=== PATIENT | male | born 1970 ===

== ENCOUNTER 2020-11-06 22:41 | Inpatient (IN) | payer MEDICARE, MEDICAID ==
[~2020-11-06] VITALS: Ht 175.3 cm; Wt 93.9 kg
[2020-11-06 23:34] LABS: BASOPHILS % (AUTO) 0.1 % (0.0-2.0); EOSINOPHILS % (AUTO) 0.1 % (1.0-6.0); HEMATOCRIT 42.9 % (41-53); HEMOGLOBIN 14.1 g/dL (13.5-17.5); LYMPHOCYTES # (AUTO) 1.9 K/uL (1.0-4.8); LYMPHOCYTES % (AUTO) 20.5 % (22.0-44.0); MEAN CORPUSCULAR HEMOGLOBIN 29.9 pg (26.0-34.0); MEAN CORPUSCULAR HGB CONC 32.8 G/dL (31.0-37.0); MEAN CORPUSCULAR VOLUME 91 fL (80-100); MONOCYTES # (AUTO) 0.7 K/uL (0.1-1.0); MONOCYTES % (AUTO) 7.4 % (2.0-9.0); NEUTROPHILS # (AUTO) 6.6 K/uL (1.8-7.7); NEUTROPHILS % (AUTO) 71.9 % (40.0-70.0); PLATELET COUNT (AUTO) 185 K/uL (150-450); RED CELL DISTRIBUTION WIDTH 14.2 % (11.5-14.5)
[2020-11-06 23:43] LABS: ANION GAP 9 mmol/L (8-16); CALCIUM, TOTAL 9.4 mg/dL (8.8-10.5); CARBON DIOXIDE 26 mmol/L (22-29); CHLORIDE 104 mmol/L (98-107); CREATININE 1.82 mg/dL (0.60-1.30); GLOMERULAR FILTR. RATE CALC 40 mL/min (>60); GLUCOSE,RANDOM 150 mg/dL (70-110); POTASSIUM 4.4 mmol/L (3.5-5.1); SODIUM SERUM 139 mmol/L (136-145); UREA NITROGEN, BLOOD 27 mg/dL (7-18)
[2020-11-06] MEDS ORDERED: HALOPERIDOL 5 MG TABLET PO ONE (23:45)
[2020-11-06] MEDS ORDERED: DiphenhydrAMINE HCL 25 MG CAPSULE PO ONE (23:45)
[2020-11-06] MEDS ORDERED: IBUPROFEN 800 MG TABLET PO ONE (23:45)
[2020-11-06 23:49] LABS: ALANINE AMINOTRANSFERASE 54 U/L (12-78); ALBUMIN 3.7 g/dL (3.4-5.0); ALKALINE PHOSPHATASE 128 U/L (46-116); ASPARTATE AMINOTRANSFERASE 24 U/L (15-37); BILIRUBIN,TOTAL 0.2 mg/dL (0.1-1.0); LIPASE 344 U/L (73-393); TOTAL PROTEIN, SERUM 7.7 g/dL (6.4-8.2)
[2020-11-07] MEDS ORDERED: SODIUM CHLORIDE 0.9% 1,000 ML ONE (00:40)
[2020-11-07] MEDS ORDERED: SODIUM CHLORIDE 0.9% 1,000 ML IV ONE ×2 (00:45→02:45)
[2020-11-07] MEDS ORDERED: ZOLPIDEM TARTRATE 10 MG TABLET PO PRN (02:15)
[2020-11-07 02:35] LABS: APPEARANCE,URINE CLOUDY (CLEAR); BILIRUBIN,URINE NEGATIVE (NEGATIVE); GLUCOSE, URINE (UA) NEGATIVE (NEGATIVE); KETONES,URINE NEGATIVE (NEGATIVE); LEUKOCYTE ESTERASE ,URINE SMALL (NEGATIVE); NITRATE,URINE POSITIVE (NEGATIVE); OCCULT BLOOD,URINE TRACE (NEGATIVE); PROTEIN,URINE NEGATIVE (NEGATIVE); UROBILINOGEN,URINE 0.2 mg/dL (<=1.0)
[2020-11-07 02:43] LABS: COVID AG,FIA SOURCE NASOPHARYNGEAL
[2020-11-07 02:45] LABS: BACTERIA,URINE Moderate /HPF (None Seen); RBC,URINE 0-2 /HPF (0-2)
[2020-11-07 02:46] LABS: SQUAMOUS EPITHELIAL CELL,UR None Seen /LPF (None Seen)
[2020-11-07 03:20] VITALS: BP 149/82
[2020-11-07] MEDS ORDERED: INFLUENZA VIRUS VACCINE QVS 2020-21 (6MO+)/PF 60 MCG/0.5 ML SYRINGE IM ONE (06:00)
[2020-11-07 07:09] LABS: AMPHET/METH SCREEN,URINE NEGATIVE (NEGATIVE); BARBITURATE SCREEN, URINE NEGATIVE (NEGATIVE); BENZODIAZEPINES SCREEN,URINE NEGATIVE (NEGATIVE); CANNABINOID SCREEN,URINE NEGATIVE (NEGATIVE); COCAINE SCREEN,URINE NEGATIVE (NEGATIVE); METHADONE SCREEN, URINE NEGATIVE (NEGATIVE); OPIATE SCREEN,URINE NEGATIVE (NEGATIVE)
[2020-11-07 07:13] LABS: PHENCYCLIDINE SCREEN,URINE NEGATIVE (NEGATIVE)
[2020-11-07 08:38] VITALS: BP 139/98
[2020-11-07] MEDS ORDERED: BACITRACIN 28 GM OINTMENT TP PRN (08:45)
[2020-11-07] MEDS ORDERED: CloNIDine HCL 0.1 MG TABLET PO PRN (08:45)
[2020-11-07] MEDS ORDERED: MAGNESIUM HYDROXIDE SUSPENSION 30 ML UDCUP PO PRN (08:45)
[2020-11-07] MEDS ORDERED: ALBUTEROL SULFATE HFA 90 MCG/PUFF 8 GM INHALER IH PRN (08:45)
[2020-11-07] MEDS ORDERED: BENZOCAINE/MENTHOL LOZENGE PO PRN (08:45)
[2020-11-07] MEDS ORDERED: OMEPRAZOLE 20 MG CAPSULE PO PRN (08:45)
[2020-11-07] MEDS ORDERED: LOPERAMIDE HCL 2 MG CAPSULE PO PRN (08:45)
[2020-11-07] MEDS ORDERED: PETROLATUM,WHITE 28 GM JELLY TP PRN (08:45)
[2020-11-07] MEDS ORDERED: DOCUSATE SODIUM 100 MG CAPSULE PO PRN (08:45)
[2020-11-07] MEDS ORDERED: IBUPROFEN 600 MG TABLET PO PRN (08:45)
[2020-11-07] MEDS ORDERED: MAG HYDROX/AL HYDROX/SIMETH ES 30 ML SUSPENSION UDCUP PO PRN (08:45)
[2020-11-07] MEDS ORDERED: ONDANSETRON HCL 4 MG TABLET PO PRN (08:45)
[2020-11-07] MEDS: CIPROFLOXACIN HCL 250 MG TABLET PO SCH ×2 (09:19→16:21)
[2020-11-07] MEDS: AmLODIPine BESYLATE 5 MG TABLET PO SCH (09:19)
[2020-11-07 16:28] VITALS: BP 96/55
[2020-11-07] MEDS: LORazepam 2 MG TABLET PO PRN (20:13)
[2020-11-08 08:54] LABS: CALCIUM, TOTAL 9.2 mg/dL (8.8-10.5); CHOL/HDL RATIO 2.8 (4.2-7.3); CREATININE 1.8 mg/dL (0.60-1.30); POTASSIUM 4.8 mmol/L (3.5-5.1)
[2020-11-08] MEDS: AmLODIPine BESYLATE 5 MG TABLET PO SCH (09:28)
[2020-11-08] MEDS: CIPROFLOXACIN HCL 500 MG TABLET PO SCH ×2 (09:28→16:44)
[2020-11-08 10:05] VITALS: BP 141/83
[2020-11-08 16:35] VITALS: BP 132/87
[2020-11-09] MEDS: AmLODIPine BESYLATE 5 MG TABLET PO SCH (08:19)
[2020-11-09] MEDS: CIPROFLOXACIN HCL 500 MG TABLET PO SCH ×2 (08:19→16:09)
[2020-11-09] MEDS: LORazepam 2 MG TABLET PO PRN (09:28)
[2020-11-09 09:47] VITALS: BP 121/89
[2020-11-09] MEDS: RisperiDONE 2 MG TABLET PO SCH ×2 (10:45→16:09)
[2020-11-09 17:15] VITALS: BP 127/72
[2020-11-10 04:03] VITALS: BP 124/74
[2020-11-10] MEDS: CIPROFLOXACIN HCL 500 MG TABLET PO SCH ×2 (08:44→16:33)
[2020-11-10] MEDS: RisperiDONE 2 MG TABLET PO SCH ×2 (08:44→16:33)
[2020-11-10] MEDS: AmLODIPine BESYLATE 5 MG TABLET PO SCH (08:44)
[2020-11-10 09:16] VITALS: BP 133/92
[2020-11-10] MEDS: LORazepam 2 MG TABLET PO PRN (09:36)
[2020-11-10] MEDS: HALOPERIDOL 5 MG TABLET PO PRN (09:36)
[2020-11-10 16:03] VITALS: BP 125/89
[2020-11-11] MEDS: CIPROFLOXACIN HCL 500 MG TABLET PO SCH ×2 (08:03→16:14)
[2020-11-11] MEDS: AmLODIPine BESYLATE 5 MG TABLET PO SCH (08:04)
[2020-11-11] MEDS: RisperiDONE 2 MG TABLET PO SCH ×2 (08:04→16:14)
[2020-11-11 08:48] VITALS: BP 141/78
[2020-11-11] MEDS: HALOPERIDOL 5 MG TABLET PO PRN (16:54)
[2020-11-11 18:03] VITALS: BP 119/68
[2020-11-12 06:54] LABS: BASOPHILS % (AUTO) 0.1 % (0.0-2.0); EOSINOPHILS % (AUTO) 0.1 % (1.0-6.0); HEMATOCRIT 44.3 % (41-53); HEMOGLOBIN 14.6 g/dL (13.5-17.5); LYMPHOCYTES # (AUTO) 2.3 K/uL (1.0-4.8); LYMPHOCYTES % (AUTO) 37.4 % (22.0-44.0); MEAN CORPUSCULAR HEMOGLOBIN 30.2 pg (26.0-34.0); MEAN CORPUSCULAR HGB CONC 32.9 G/dL (31.0-37.0); MEAN CORPUSCULAR VOLUME 92 fL (80-100); MONOCYTES # (AUTO) 0.5 K/uL (0.1-1.0); MONOCYTES % (AUTO) 8.7 % (2.0-9.0); NEUTROPHILS # (AUTO) 3.4 K/uL (1.8-7.7); NEUTROPHILS % (AUTO) 53.7 % (40.0-70.0); PLATELET COUNT (AUTO) 181 K/uL (150-450); RED BLOOD CELL COUNT(AUTO) 4.83 MIL/uL (4.50-5.90); RED CELL DISTRIBUTION WIDTH 14.5 % (11.5-14.5)
[2020-11-12 07:19] LABS: ALBUMIN 3.7 g/dL (3.4-5.0); BILIRUBIN,TOTAL 0.2 mg/dL (0.1-1.0); CALCIUM, TOTAL 9.6 mg/dL (8.8-10.5); CHOL/HDL RATIO 3.2 (4.2-7.3); CREATININE 1.7 mg/dL (0.60-1.30); MAGNESIUM 2.5 mg/dL (1.80-2.40); PHOSPHORUS 4.1 mg/dL (2.5-4.9); POTASSIUM 5.5 mmol/L (3.5-5.1); THYROID STIMULATING HORMONE 1.99 uIU/mL (0.36-3.74); TOTAL PROTEIN, SERUM 8.1 g/dL (6.4-8.2)
[2020-11-12] MEDS: RisperiDONE 2 MG TABLET PO SCH ×2 (08:34→16:27)
[2020-11-12] MEDS: AmLODIPine BESYLATE 5 MG TABLET PO SCH (08:34)
[2020-11-12 15:02] LABS: COVID AG,FIA SOURCE NASOPHARYNGEAL
[2020-11-12 16:00] VITALS: BP 125/82
[2020-11-13] MEDS: AmLODIPine BESYLATE 5 MG TABLET PO SCH (08:24)
[2020-11-13] MEDS: RisperiDONE 2 MG TABLET PO SCH ×2 (08:24→16:14)
[2020-11-13 08:27] VITALS: BP 147/84
[2020-11-13 16:00] VITALS: BP 134/79
[2020-11-13] MEDS: HALOPERIDOL 5 MG TABLET PO PRN (16:14)
[2020-11-14 05:57] LABS: BASOPHILS % (AUTO) 0.3 % (0.0-2.0); EOSINOPHILS % (AUTO) 0.1 % (1.0-6.0); HEMATOCRIT 42.8 % (41-53); HEMOGLOBIN 13.7 g/dL (13.5-17.5); LYMPHOCYTES # (AUTO) 1.8 K/uL (1.0-4.8); LYMPHOCYTES % (AUTO) 34.5 % (22.0-44.0); MEAN CORPUSCULAR VOLUME 94 fL (80-100); MONOCYTES # (AUTO) 0.5 K/uL (0.1-1.0); MONOCYTES % (AUTO) 8.7 % (2.0-9.0); NEUTROPHILS % (AUTO) 56.4 % (40.0-70.0); PLATELET COUNT (AUTO) 173 K/uL (150-450); RED BLOOD CELL COUNT(AUTO) 4.56 MIL/uL (4.50-5.90)
[2020-11-14 06:48] LABS: ALBUMIN 3.4 g/dL (3.4-5.0); BILIRUBIN,TOTAL 0.3 mg/dL (0.1-1.0); CREATININE 1.76 mg/dL (0.60-1.30); MAGNESIUM 2.3 mg/dL (1.80-2.40); PHOSPHORUS 3.4 mg/dL (2.5-4.9); POTASSIUM 5.3 mmol/L (3.5-5.1); TOTAL PROTEIN, SERUM 7.4 g/dL (6.4-8.2)
[2020-11-14 08:00] VITALS: BP 127/81
[2020-11-14] MEDS: AmLODIPine BESYLATE 5 MG TABLET PO SCH (09:02)
[2020-11-14] MEDS: RisperiDONE 2 MG TABLET PO SCH ×2 (09:02→16:05)
[2020-11-14 16:07] VITALS: BP 130/81
[2020-11-15 01:17] VITALS: BP 118/73
[2020-11-15] MEDS: HALOPERIDOL 5 MG TABLET PO PRN (03:57)
[2020-11-15] MEDS: LORazepam 2 MG TABLET PO PRN (03:58)
[2020-11-15 04:00] VITALS: BP 143/87
[2020-11-15] MEDS: RisperiDONE 2 MG TABLET PO SCH ×2 (08:21→16:25)
[2020-11-15] MEDS: AmLODIPine BESYLATE 5 MG TABLET PO SCH (08:22)
[2020-11-15 08:58] VITALS: BP 161/100
[2020-11-15 16:22] VITALS: BP 144/91
[2020-11-16 03:16] VITALS: BP 131/81
[2020-11-16 06:09] LABS: BASOPHILS % (AUTO) 0.8 % (0.0-2.0); EOSINOPHILS % (AUTO) 0.2 % (1.0-6.0); HEMATOCRIT 45.8 % (41-53); HEMOGLOBIN 14.4 g/dL (13.5-17.5); LYMPHOCYTES # (AUTO) 2.8 K/uL (1.0-4.8); LYMPHOCYTES % (AUTO) 42.2 % (22.0-44.0); MEAN CORPUSCULAR HGB CONC 31.5 G/dL (31.0-37.0); MEAN CORPUSCULAR VOLUME 95 fL (80-100); MONOCYTES # (AUTO) 0.6 K/uL (0.1-1.0); MONOCYTES % (AUTO) 8.4 % (2.0-9.0); NEUTROPHILS # (AUTO) 3.2 K/uL (1.8-7.7); NEUTROPHILS % (AUTO) 48.4 % (40.0-70.0); PLATELET COUNT (AUTO) 197 K/uL (150-450); RED BLOOD CELL COUNT(AUTO) 4.81 MIL/uL (4.50-5.90); RED CELL DISTRIBUTION WIDTH 15.1 % (11.5-14.5)
[2020-11-16 07:07] LABS: ALBUMIN 3.9 g/dL (3.4-5.0); BILIRUBIN,TOTAL 0.3 mg/dL (0.1-1.0); CALCIUM, TOTAL 9.1 mg/dL (8.8-10.5); CREATININE 1.56 mg/dL (0.60-1.30); MAGNESIUM 2.5 mg/dL (1.80-2.40); PHOSPHORUS 4.5 mg/dL (2.5-4.9)
[2020-11-16] MEDS: RisperiDONE 2 MG TABLET PO SCH ×2 (08:23→16:20)
[2020-11-16] MEDS: AmLODIPine BESYLATE 5 MG TABLET PO SCH (08:23)
[2020-11-16 08:32] VITALS: BP 124/80
[2020-11-16 16:21] VITALS: BP 121/74
[2020-11-17] MEDS: RisperiDONE 2 MG TABLET PO SCH ×2 (08:34→16:00)
[2020-11-17] MEDS: AmLODIPine BESYLATE 5 MG TABLET PO SCH (08:34)
[2020-11-17 08:46] VITALS: BP 133/99
[2020-11-17 16:00] VITALS: BP 127/74
[2020-11-18 03:19] VITALS: BP 132/80
[2020-11-18 08:31] VITALS: BP 153/100
[2020-11-18] MEDS: RisperiDONE 2 MG TABLET PO SCH ×2 (08:51→16:19)
[2020-11-18] MEDS: AmLODIPine BESYLATE 5 MG TABLET PO SCH (08:51)
[2020-11-18 13:32] VITALS: BP 141/90
[2020-11-18 17:04] VITALS: BP 123/71
[2020-11-19] MEDS: RisperiDONE 2 MG TABLET PO SCH ×2 (08:05→16:02)
[2020-11-19] MEDS: HALOPERIDOL 5 MG TABLET PO PRN (08:06)
[2020-11-19] MEDS: AmLODIPine BESYLATE 5 MG TABLET PO SCH (08:06)
[2020-11-19 09:04] VITALS: BP 140/79
[2020-11-19 15:12] LABS: COVID AG,FIA SOURCE NASOPHARYNGEAL
[2020-11-19 16:00] VITALS: BP 117/75
[2020-11-20 06:55] LABS: BASOPHILS % (AUTO) 0.1 % (0.0-2.0); EOSINOPHILS % (AUTO) 0.1 % (1.0-6.0); HEMATOCRIT 41.5 % (41-53); HEMOGLOBIN 13.7 g/dL (13.5-17.5); LYMPHOCYTES # (AUTO) 1.7 K/uL (1.0-4.8); LYMPHOCYTES % (AUTO) 26.7 % (22.0-44.0); MEAN CORPUSCULAR HEMOGLOBIN 30.2 pg (26.0-34.0); MEAN CORPUSCULAR HGB CONC 33.1 G/dL (31.0-37.0); MEAN CORPUSCULAR VOLUME 91 fL (80-100); MONOCYTES # (AUTO) 0.5 K/uL (0.1-1.0); MONOCYTES % (AUTO) 8.5 % (2.0-9.0); NEUTROPHILS % (AUTO) 64.6 % (40.0-70.0); PLATELET COUNT (AUTO) 178 K/uL (150-450); RED BLOOD CELL COUNT(AUTO) 4.54 MIL/uL (4.50-5.90); RED CELL DISTRIBUTION WIDTH 14.5 % (11.5-14.5)
[2020-11-20 06:56] LABS: HEMOGLOBIN A1C 6.7 % (3.8-5.6)
[2020-11-20 07:19] LABS: ALBUMIN 3.4 g/dL (3.4-5.0); BILIRUBIN,TOTAL 0.3 mg/dL (0.1-1.0); CALCIUM, TOTAL 8.9 mg/dL (8.8-10.5); CHOL/HDL RATIO 3.2 (4.2-7.3); CREATININE 1.88 mg/dL (0.60-1.30); MAGNESIUM 2.3 mg/dL (1.80-2.40); PHOSPHORUS 4.4 mg/dL (2.5-4.9); POTASSIUM 5.2 mmol/L (3.5-5.1); THYROID STIMULATING HORMONE 2.05 uIU/mL (0.36-3.74); TOTAL PROTEIN, SERUM 7.6 g/dL (6.4-8.2)
[2020-11-20] MEDS: RisperiDONE 2 MG TABLET PO SCH ×2 (08:19→18:45)
[2020-11-20] MEDS: AmLODIPine BESYLATE 5 MG TABLET PO SCH (08:19)
[2020-11-20 09:00] VITALS: BP 128/88
[2020-11-20 16:55] VITALS: BP 136/89
[2020-11-21] MEDS: AmLODIPine BESYLATE 5 MG TABLET PO SCH (08:20)
[2020-11-21] MEDS: RisperiDONE 2 MG TABLET PO SCH ×2 (08:20→16:02)
[2020-11-21 09:00] VITALS: BP 133/88
[2020-11-21] MEDS ORDERED: SODIUM POLYSTYRENE SULFONATE 15 GM/60 ML SUSPENSION BOTTLE PO ONE (13:00)
[2020-11-21 18:12] VITALS: BP 135/85
[2020-11-22 01:23] VITALS: BP 142/84
[2020-11-22 06:48] LABS: BASOPHILS % (AUTO) 0.2 % (0.0-2.0); EOSINOPHILS % (AUTO) 0.1 % (1.0-6.0); HEMATOCRIT 43.9 % (41-53); HEMOGLOBIN 14.8 g/dL (13.5-17.5); LYMPHOCYTES % (AUTO) 33.5 % (22.0-44.0); MEAN CORPUSCULAR HEMOGLOBIN 30.8 pg (26.0-34.0); MEAN CORPUSCULAR HGB CONC 33.7 G/dL (31.0-37.0); MEAN CORPUSCULAR VOLUME 91 fL (80-100); MONOCYTES # (AUTO) 0.5 K/uL (0.1-1.0); MONOCYTES % (AUTO) 8.8 % (2.0-9.0); NEUTROPHILS # (AUTO) 3.5 K/uL (1.8-7.7); NEUTROPHILS % (AUTO) 57.4 % (40.0-70.0); PLATELET COUNT (AUTO) 181 K/uL (150-450); RED BLOOD CELL COUNT(AUTO) 4.81 MIL/uL (4.50-5.90); RED CELL DISTRIBUTION WIDTH 14.7 % (11.5-14.5)
[2020-11-22 07:17] LABS: ALBUMIN 3.7 g/dL (3.4-5.0); BILIRUBIN,TOTAL 0.5 mg/dL (0.1-1.0); CALCIUM, TOTAL 9.4 mg/dL (8.8-10.5); CREATININE 1.77 mg/dL (0.60-1.30); MAGNESIUM 2.4 mg/dL (1.80-2.40); PHOSPHORUS 3.3 mg/dL (2.5-4.9); POTASSIUM 4.6 mmol/L (3.5-5.1); TOTAL PROTEIN, SERUM 8.5 g/dL (6.4-8.2)
[2020-11-22 08:00] VITALS: BP 126/86
[2020-11-22] MEDS: RisperiDONE 2 MG TABLET PO SCH ×2 (09:34→16:40)
[2020-11-22] MEDS: HALOPERIDOL 5 MG TABLET PO PRN (09:34)
[2020-11-22] MEDS: AmLODIPine BESYLATE 5 MG TABLET PO SCH (09:34)
[2020-11-22 16:00] VITALS: BP 118/77
[2020-11-22 22:15] VITALS: BP 134/82
[2020-11-23 09:00] VITALS: BP 130/84
[2020-11-23] MEDS: AmLODIPine BESYLATE 5 MG TABLET PO SCH (09:48)
[2020-11-23] MEDS: HALOPERIDOL 5 MG TABLET PO PRN (09:48)
[2020-11-23] MEDS: RisperiDONE 2 MG TABLET PO SCH ×2 (09:48→16:20)
[2020-11-23 16:21] VITALS: BP 124/71
[2020-11-24 08:11] VITALS: BP 135/74
[2020-11-24] MEDS: HALOPERIDOL 5 MG TABLET PO PRN ×2 (08:51→16:12)
[2020-11-24] MEDS: RisperiDONE 3 MG TABLET PO SCH ×2 (08:51→16:12)
[2020-11-24] MEDS: AmLODIPine BESYLATE 5 MG TABLET PO SCH (08:51)
[2020-11-24 16:21] VITALS: BP 135/84
[2020-11-25 05:31] VITALS: BP 129/80
[2020-11-25] MEDS: HALOPERIDOL 5 MG TABLET PO PRN (06:50)
[2020-11-25 08:01] VITALS: BP 127/83
[2020-11-25] MEDS: RisperiDONE 3 MG TABLET PO SCH ×2 (08:50→16:48)
[2020-11-25] MEDS: AmLODIPine BESYLATE 5 MG TABLET PO SCH (08:52)
[2020-11-25 16:46] VITALS: BP 139/99
[2020-11-26 06:29] VITALS: BP 134/80
[2020-11-26] MEDS: RisperiDONE 3 MG TABLET PO SCH ×2 (08:24→16:01)
[2020-11-26] MEDS: AmLODIPine BESYLATE 5 MG TABLET PO SCH (08:25)
[2020-11-26 09:36] VITALS: BP 146/85
[2020-11-26 11:19] LABS: HEMOGLOBIN 14.5 g/dL (13.5-17.5); MEAN CORPUSCULAR HEMOGLOBIN 30.1 pg (26.0-34.0); MEAN CORPUSCULAR HGB CONC 32.8 G/dL (31.0-37.0); MEAN CORPUSCULAR VOLUME 92 fL (80-100); PLATELET COUNT (AUTO) 188 K/uL (150-450); RED CELL DISTRIBUTION WIDTH 14.9 % (11.5-14.5)
[2020-11-26 11:51] LABS: CALCIUM, TOTAL 8.4 mg/dL (8.8-10.5); CREATININE 1.88 mg/dL (0.60-1.30); MAGNESIUM 2.3 mg/dL (1.80-2.40); PHOSPHORUS 4.5 mg/dL (2.5-4.9); POTASSIUM 4.8 mmol/L (3.5-5.1)
[2020-11-26 12:42] LABS: BAND NEUTROPHILS % (MANUAL) 2 % (0-5); LYMPHOCYTES % (MANUAL) 28 % (22-44); MONOCYTES % (MANUAL) 6 % (2-9); SEGMENTED NEUTROPHILS % 64 % (40-70)
[2020-11-26 16:00] VITALS: BP 101/61
[2020-11-26 16:37] LABS: COVID AG,FIA SOURCE NASOPHARYNGEAL
[2020-11-27 06:26] VITALS: BP 118/78
[2020-11-27 07:26] LABS: HEMOGLOBIN A1C 6.6 % (3.8-5.6)
[2020-11-27 08:01] LABS: CHOL/HDL RATIO 3.3 (4.2-7.3); THYROID STIMULATING HORMONE 2.16 uIU/mL (0.36-3.74)
[2020-11-27 08:34] VITALS: BP 139/99
[2020-11-27] MEDS: RisperiDONE 3 MG TABLET PO SCH ×2 (09:15→16:12)
[2020-11-27] MEDS: AmLODIPine BESYLATE 5 MG TABLET PO SCH (09:16)
[2020-11-27] MEDS: HALOPERIDOL 5 MG TABLET PO PRN ×2 (12:18→17:04)
[2020-11-27 16:01] VITALS: BP 132/89
[2020-11-28 08:00] VITALS: BP 128/86
[2020-11-28] MEDS: RisperiDONE 3 MG TABLET PO SCH ×2 (09:11→18:43)
[2020-11-28] MEDS: AmLODIPine BESYLATE 5 MG TABLET PO SCH (09:11)
[2020-11-28 16:51] VITALS: BP 125/71
[2020-11-28] MEDS: HALOPERIDOL 5 MG TABLET PO PRN (18:43)
[2020-11-29 01:34] VITALS: BP 116/72
[2020-11-29] MEDS: RisperiDONE 3 MG TABLET PO SCH ×2 (08:20→16:12)
[2020-11-29] MEDS: AmLODIPine BESYLATE 5 MG TABLET PO SCH (08:21)
[2020-11-29] MEDS: HALOPERIDOL 5 MG TABLET PO PRN (08:21)
[2020-11-29] MEDS: NICOTINE 21 MG/24 HOUR PATCH TD SCH (10:16)
[2020-11-29 16:00] VITALS: BP 132/70
[2020-11-29 21:55] VITALS: BP 128/72
[2020-11-30] MEDS: RisperiDONE 3 MG TABLET PO SCH ×2 (08:20→16:11)
[2020-11-30] MEDS: NICOTINE 21 MG/24 HOUR PATCH TD SCH (08:20)
[2020-11-30] MEDS: AmLODIPine BESYLATE 5 MG TABLET PO SCH (08:20)
[2020-11-30 08:50] VITALS: BP 131/71
[2020-11-30 16:00] VITALS: BP 147/70
[2020-12-01 04:18] VITALS: BP 121/71
[2020-12-01 08:33] VITALS: BP 110/81
[2020-12-01] MEDS: RisperiDONE 3 MG TABLET PO SCH ×2 (08:53→16:28)
[2020-12-01] MEDS: NICOTINE 21 MG/24 HOUR PATCH TD SCH (08:54)
[2020-12-01] MEDS: AmLODIPine BESYLATE 5 MG TABLET PO SCH (08:54)
[2020-12-01] MEDS ORDERED: DEXTROSE 50%-WATER 25 GM/50 ML SYRINGE IVP PRN (14:45)
[2020-12-01 16:00] VITALS: BP 130/78
[2020-12-01 16:43] LABS: GLUCOMETER DEV NAME(LOC) 3EX.; GLUCOSE,POINT OF CARE 148 MG/DL (70-110)
[2020-12-01] MEDS: INSULIN LISPRO 100 UNITS/ML SQ PRN (17:10)
[2020-12-01 20:52] LABS: GLUCOMETER DEV NAME(LOC) 3EX.; GLUCOSE,POINT OF CARE 139 MG/DL (70-110)
[2020-12-02 05:32] LABS: GLUCOMETER DEV NAME(LOC) 3E.I 2; GLUCOSE,POINT OF CARE 137 MG/DL (70-110)
[2020-12-02 08:02] VITALS: BP 108/70
[2020-12-02] MEDS: RisperiDONE 3 MG TABLET PO SCH ×2 (08:32→16:53)
[2020-12-02] MEDS: AmLODIPine BESYLATE 5 MG TABLET PO SCH (08:32)
[2020-12-02] MEDS: NICOTINE 21 MG/24 HOUR PATCH TD SCH (08:33)
[2020-12-02] MEDS: INSULIN LISPRO 100 UNITS/ML SQ PRN ×2 (11:24→17:42)
[2020-12-02 11:25] LABS: GLUCOMETER DEV NAME(LOC) 3EX.; GLUCOSE,POINT OF CARE 143 MG/DL (70-110)
[2020-12-02 16:39] VITALS: BP 126/80
[2020-12-02 17:22] LABS: GLUCOMETER DEV NAME(LOC) 3E.I 2; GLUCOSE,POINT OF CARE 156 MG/DL (70-110)
[2020-12-02 21:18] LABS: GLUCOMETER DEV NAME(LOC) 3E.I 2; GLUCOSE,POINT OF CARE 105 MG/DL (70-110)
[2020-12-03 05:33] LABS: GLUCOMETER DEV NAME(LOC) 3E.I 2; GLUCOSE,POINT OF CARE 115 MG/DL (70-110)
[2020-12-03 08:06] VITALS: BP 133/97
[2020-12-03] MEDS: RisperiDONE 3 MG TABLET PO SCH ×2 (08:22→17:21)
[2020-12-03] MEDS: AmLODIPine BESYLATE 5 MG TABLET PO SCH (08:22)
[2020-12-03] MEDS: NICOTINE 21 MG/24 HOUR PATCH TD SCH ×2 (08:27→09:00)
[2020-12-03] MEDS: INSULIN LISPRO 100 UNITS/ML SQ PRN ×2 (11:03→21:05)
[2020-12-03 11:12] LABS: GLUCOMETER DEV NAME(LOC) 3EX.; GLUCOSE,POINT OF CARE 173 MG/DL (70-110)
[2020-12-03] MEDS: HALOPERIDOL 5 MG TABLET PO PRN (12:21)
[2020-12-03 14:45] LABS: COVID AG,FIA SOURCE NASOPHARYNGEAL
[2020-12-03 16:00] VITALS: BP 125/78
[2020-12-03 17:38] LABS: GLUCOMETER DEV NAME(LOC) 3E.I 2; GLUCOSE,POINT OF CARE 100 MG/DL (70-110)
[2020-12-03 21:07] LABS: GLUCOMETER DEV NAME(LOC) 3E.I 2; GLUCOSE,POINT OF CARE 197 MG/DL (70-110)
[2020-12-04 05:58] LABS: GLUCOMETER DEV NAME(LOC) 3E.I 2; GLUCOSE,POINT OF CARE 146 MG/DL (70-110)
[2020-12-04 06:09] VITALS: BP 138/88
[2020-12-04 08:22] VITALS: BP 114/92
[2020-12-04] MEDS: AmLODIPine BESYLATE 5 MG TABLET PO SCH (08:41)
[2020-12-04] MEDS: RisperiDONE 3 MG TABLET PO SCH ×2 (08:42→17:16)
[2020-12-04] MEDS: NICOTINE 21 MG/24 HOUR PATCH TD SCH (08:43)
[2020-12-04 11:28] LABS: GLUCOMETER DEV NAME(LOC) 3EX.; GLUCOSE,POINT OF CARE 96 MG/DL (70-110)
[2020-12-04 16:58] LABS: GLUCOMETER DEV NAME(LOC) 3E.I 2; GLUCOSE,POINT OF CARE 119 MG/DL (70-110)
[2020-12-04 17:06] VITALS: BP 122/72
[2020-12-04 20:43] LABS: GLUCOMETER DEV NAME(LOC) 3E.I 2; GLUCOSE,POINT OF CARE 111 MG/DL (70-110)
[2020-12-05 05:32] LABS: GLUCOMETER DEV NAME(LOC) 3E.I 2; GLUCOSE,POINT OF CARE 96 MG/DL (70-110)
[2020-12-05 06:00] VITALS: BP 133/93
[2020-12-05] MEDS: AmLODIPine BESYLATE 5 MG TABLET PO SCH (08:39)
[2020-12-05] MEDS: RisperiDONE 3 MG TABLET PO SCH ×2 (08:39→16:34)
[2020-12-05] MEDS: NICOTINE 21 MG/24 HOUR PATCH TD SCH (09:00)
[2020-12-05 10:16] VITALS: BP 93/63
[2020-12-05 11:22] LABS: GLUCOMETER DEV NAME(LOC) 3E.I 2; GLUCOSE,POINT OF CARE 127 MG/DL (70-110)
[2020-12-05] MEDS: INSULIN LISPRO 100 UNITS/ML SQ PRN ×2 (11:47→21:32)
[2020-12-05 17:01] LABS: GLUCOMETER DEV NAME(LOC) 3E.I 2; GLUCOSE,POINT OF CARE 116 MG/DL (70-110)
[2020-12-05 17:38] VITALS: BP 101/73
[2020-12-05 21:24] LABS: GLUCOMETER DEV NAME(LOC) 3E.I 2; GLUCOSE,POINT OF CARE 149 MG/DL (70-110)
[2020-12-06 08:00] VITALS: BP 121/76
[2020-12-06] MEDS: AmLODIPine BESYLATE 5 MG TABLET PO SCH (09:02)
[2020-12-06] MEDS: RisperiDONE 3 MG TABLET PO SCH ×2 (09:03→16:14)
[2020-12-06] MEDS: NICOTINE 21 MG/24 HOUR PATCH TD SCH (09:03)
[2020-12-06 09:33] LABS: GLUCOMETER DEV NAME(LOC) 3E.I 2; GLUCOSE,POINT OF CARE 128 MG/DL (70-110)
[2020-12-06 11:41] LABS: GLUCOMETER DEV NAME(LOC) 3E.I 2; GLUCOSE,POINT OF CARE 99 MG/DL (70-110)
[2020-12-06] MEDS: INSULIN LISPRO 100 UNITS/ML SQ PRN ×3 (13:25→21:40)
[2020-12-06 16:00] VITALS: BP 133/78
[2020-12-06 16:36] LABS: GLUCOMETER DEV NAME(LOC) 3E.I 2; GLUCOSE,POINT OF CARE 210 MG/DL (70-110)
[2020-12-06 21:34] LABS: GLUCOMETER DEV NAME(LOC) 3E.I 2; GLUCOSE,POINT OF CARE 194 MG/DL (70-110)
[2020-12-07 02:12] VITALS: BP 117/72
[2020-12-07 05:48] LABS: GLUCOMETER DEV NAME(LOC) 3E.I 2; GLUCOSE,POINT OF CARE 108 MG/DL (70-110)
[2020-12-07] MEDS: AmLODIPine BESYLATE 5 MG TABLET PO SCH (08:15)
[2020-12-07] MEDS: NICOTINE 21 MG/24 HOUR PATCH TD SCH (08:15)
[2020-12-07] MEDS: RisperiDONE 3 MG TABLET PO SCH ×2 (08:15→16:14)
[2020-12-07 10:32] VITALS: BP 135/88
[2020-12-07] MEDS: HALOPERIDOL 5 MG TABLET PO PRN (13:06)
[2020-12-07 16:16] VITALS: BP 134/79
[2020-12-07] MEDS: INSULIN LISPRO 100 UNITS/ML SQ PRN ×2 (17:00→21:55)
[2020-12-07 17:24] LABS: GLUCOMETER DEV NAME(LOC) 3E.I 2; GLUCOSE,POINT OF CARE 91 MG/DL (70-110)
[2020-12-07 17:24] LABS: GLUCOMETER DEV NAME(LOC) 3E.I 2; GLUCOSE,POINT OF CARE 251 MG/DL (70-110)
[2020-12-07 21:46] LABS: GLUCOMETER DEV NAME(LOC) 3E.I 2; GLUCOSE,POINT OF CARE 193 MG/DL (70-110)
[2020-12-08 00:24] VITALS: BP 125/85
[2020-12-08 05:32] LABS: GLUCOMETER DEV NAME(LOC) 3E.I 2; GLUCOSE,POINT OF CARE 111 MG/DL (70-110)
[2020-12-08 08:00] VITALS: BP 128/72
[2020-12-08] MEDS: AmLODIPine BESYLATE 5 MG TABLET PO SCH (08:57)
[2020-12-08] MEDS: RisperiDONE 3 MG TABLET PO SCH ×2 (08:57→16:21)
[2020-12-08] MEDS: NICOTINE 21 MG/24 HOUR PATCH TD SCH (09:00)
[2020-12-08 11:32] LABS: GLUCOMETER DEV NAME(LOC) 3E.I 2; GLUCOSE,POINT OF CARE 113 MG/DL (70-110)
[2020-12-08 16:06] VITALS: BP 107/79
[2020-12-08 17:18] LABS: GLUCOMETER DEV NAME(LOC) 3E.I 2; GLUCOSE,POINT OF CARE 99 MG/DL (70-110)
[2020-12-08 21:10] LABS: GLUCOMETER DEV NAME(LOC) 3E.I 2; GLUCOSE,POINT OF CARE 173 MG/DL (70-110)
[2020-12-08] MEDS: INSULIN LISPRO 100 UNITS/ML SQ PRN (21:19)
[2020-12-09 05:43] LABS: GLUCOMETER DEV NAME(LOC) 3E.I 2; GLUCOSE,POINT OF CARE 122 MG/DL (70-110)
[2020-12-09] MEDS: HALOPERIDOL 5 MG TABLET PO PRN ×2 (06:11→13:38)
[2020-12-09] MEDS: AmLODIPine BESYLATE 5 MG TABLET PO SCH (09:16)
[2020-12-09] MEDS: RisperiDONE 3 MG TABLET PO SCH ×2 (09:16→16:12)
[2020-12-09] MEDS: NICOTINE 21 MG/24 HOUR PATCH TD SCH (09:17)
[2020-12-09 10:30] VITALS: BP 121/66
[2020-12-09 12:00] LABS: GLUCOMETER DEV NAME(LOC) 3EX.; GLUCOSE,POINT OF CARE 148 MG/DL (70-110)
[2020-12-09] MEDS: INSULIN LISPRO 100 UNITS/ML SQ PRN (12:08)
[2020-12-09 16:58] LABS: GLUCOMETER DEV NAME(LOC) 3E.I 2; GLUCOSE,POINT OF CARE 148 MG/DL (70-110)
[2020-12-09 18:14] VITALS: BP 122/77
[2020-12-09 21:15] LABS: GLUCOMETER DEV NAME(LOC) 3E.I 2; GLUCOSE,POINT OF CARE 133 MG/DL (70-110)
[2020-12-10 05:17] LABS: GLUCOMETER DEV NAME(LOC) 3E.I 2; GLUCOSE,POINT OF CARE 175 MG/DL (70-110)
[2020-12-10] MEDS: INSULIN LISPRO 100 UNITS/ML SQ PRN ×3 (06:40→21:50)
[2020-12-10 08:41] VITALS: BP 127/86
[2020-12-10] MEDS: NICOTINE 21 MG/24 HOUR PATCH TD SCH (09:00)
[2020-12-10] MEDS: RisperiDONE 3 MG TABLET PO SCH ×2 (09:10→16:15)
[2020-12-10] MEDS: AmLODIPine BESYLATE 5 MG TABLET PO SCH (09:10)
[2020-12-10 11:26] LABS: GLUCOMETER DEV NAME(LOC) 3EX.; GLUCOSE,POINT OF CARE 216 MG/DL (70-110)
[2020-12-10 17:01] LABS: GLUCOMETER DEV NAME(LOC) 3EX.; GLUCOSE,POINT OF CARE 121 MG/DL (70-110)
[2020-12-10 17:08] VITALS: BP 131/76
[2020-12-10 21:19] LABS: GLUCOMETER DEV NAME(LOC) 3E.I 2; GLUCOSE,POINT OF CARE 186 MG/DL (70-110)
[2020-12-10] MEDS ORDERED: NICOTINE 21 MG/24 HOUR PATCH TD PRN (22:45)
[2020-12-11 05:26] LABS: GLUCOMETER DEV NAME(LOC) 3E.I 2; GLUCOSE,POINT OF CARE 110 MG/DL (70-110)
[2020-12-11] MEDS: RisperiDONE 3 MG TABLET PO SCH ×2 (08:29→17:50)
[2020-12-11] MEDS: AmLODIPine BESYLATE 5 MG TABLET PO SCH (08:29)
[2020-12-11 08:41] VITALS: BP 136/91
[2020-12-11 11:38] LABS: GLUCOMETER DEV NAME(LOC) 3EX.; GLUCOSE,POINT OF CARE 126 MG/DL (70-110)
[2020-12-11 15:02] LABS: COVID AG,FIA SOURCE NASOPHARYNGEAL
[2020-12-11 16:00] VITALS: BP 130/81
[2020-12-11 17:25] LABS: GLUCOMETER DEV NAME(LOC) 3E.I 2; GLUCOSE,POINT OF CARE 121 MG/DL (70-110)
[2020-12-11 21:35] LABS: GLUCOMETER DEV NAME(LOC) 3E.I 2; GLUCOSE,POINT OF CARE 169 MG/DL (70-110)
[2020-12-11] MEDS: INSULIN LISPRO 100 UNITS/ML SQ PRN (22:08)
[2020-12-12] VITALS (7 sets, daily range): BP systolic 116–132; BP diastolic 80–90
[2020-12-12 05:24] LABS: GLUCOMETER DEV NAME(LOC) 3E.I 2; GLUCOSE,POINT OF CARE 113 MG/DL (70-110)
[2020-12-12] MEDS: RisperiDONE 3 MG TABLET PO SCH ×2 (09:17→16:55)
[2020-12-12] MEDS: AmLODIPine BESYLATE 5 MG TABLET PO SCH (09:17)
[2020-12-12 11:59] LABS: GLUCOMETER DEV NAME(LOC) 3E.I 2; GLUCOSE,POINT OF CARE 125 MG/DL (70-110)
[2020-12-12] MEDS: ACETAMINOPHEN 325 MG TABLET PO PRN ×2 (13:03→20:25)
[2020-12-12 16:44] LABS: GLUCOMETER DEV NAME(LOC) 3E.I 2; GLUCOSE,POINT OF CARE 129 MG/DL (70-110)
[2020-12-12 20:51] LABS: GLUCOMETER DEV NAME(LOC) 3E.I 2; GLUCOSE,POINT OF CARE 149 MG/DL (70-110)
[2020-12-12] MEDS: INSULIN LISPRO 100 UNITS/ML SQ PRN (21:08)
[2020-12-13 05:35] LABS: GLUCOMETER DEV NAME(LOC) 3E.I 2; GLUCOSE,POINT OF CARE 115 MG/DL (70-110)
[2020-12-13 05:42] VITALS: BP 141/93
[2020-12-13 08:37] VITALS: BP 124/78
[2020-12-13] MEDS: RisperiDONE 4 MG TABLET PO SCH ×2 (10:54→16:12)
[2020-12-13] MEDS: AmLODIPine BESYLATE 5 MG TABLET PO SCH (10:57)
[2020-12-13 12:22] LABS: GLUCOMETER DEV NAME(LOC) 3E.I 2; GLUCOSE,POINT OF CARE 139 MG/DL (70-110)
[2020-12-13 16:00] VITALS: BP 120/79
[2020-12-13 16:29] LABS: GLUCOMETER DEV NAME(LOC) 3E.I 2; GLUCOSE,POINT OF CARE 140 MG/DL (70-110)
[2020-12-13 21:08] LABS: GLUCOMETER DEV NAME(LOC) 3E.I 2; GLUCOSE,POINT OF CARE 166 MG/DL (70-110)
[2020-12-14 06:07] LABS: GLUCOMETER DEV NAME(LOC) 3E.I 2; GLUCOSE,POINT OF CARE 111 MG/DL (70-110)
[2020-12-14 08:11] VITALS: BP 127/83
[2020-12-14] MEDS: RisperiDONE 4 MG TABLET PO SCH ×2 (08:51→16:17)
[2020-12-14] MEDS: AmLODIPine BESYLATE 5 MG TABLET PO SCH (08:51)
[2020-12-14 11:30] LABS: GLUCOMETER DEV NAME(LOC) 3E.I 2; GLUCOSE,POINT OF CARE 219 MG/DL (70-110)
[2020-12-14] MEDS: INSULIN LISPRO 100 UNITS/ML SQ PRN ×2 (11:45→20:56)
[2020-12-14 16:00] VITALS: BP 131/92
[2020-12-14 16:35] LABS: GLUCOMETER DEV NAME(LOC) 3EX.; GLUCOSE,POINT OF CARE 102 MG/DL (70-110)
[2020-12-14 20:27] LABS: GLUCOMETER DEV NAME(LOC) 3EX.; GLUCOSE,POINT OF CARE 157 MG/DL (70-110)
[2020-12-15 05:22] VITALS: BP 143/76
[2020-12-15 05:35] LABS: GLUCOMETER DEV NAME(LOC) 3E.I 2; GLUCOSE,POINT OF CARE 178 MG/DL (70-110)
[2020-12-15] MEDS: INSULIN LISPRO 100 UNITS/ML SQ PRN ×2 (06:57→11:28)
[2020-12-15 08:22] VITALS: BP 144/95
[2020-12-15] MEDS: AmLODIPine BESYLATE 5 MG TABLET PO SCH (09:22)
[2020-12-15] MEDS: RisperiDONE 4 MG TABLET PO SCH ×2 (09:23→16:06)
[2020-12-15 11:33] LABS: GLUCOMETER DEV NAME(LOC) 3E.I 2; GLUCOSE,POINT OF CARE 130 MG/DL (70-110)
[2020-12-15 16:00] VITALS: BP 143/94
[2020-12-15 17:14] LABS: GLUCOMETER DEV NAME(LOC) 3E.I 2; GLUCOSE,POINT OF CARE 96 MG/DL (70-110)
[2020-12-15 21:22] LABS: GLUCOMETER DEV NAME(LOC) 3E.I 2; GLUCOSE,POINT OF CARE 113 MG/DL (70-110)
[2020-12-15] MEDS: ACETAMINOPHEN 325 MG TABLET PO PRN (21:23)
[2020-12-16 05:32] LABS: GLUCOMETER DEV NAME(LOC) 3E.I 2; GLUCOSE,POINT OF CARE 98 MG/DL (70-110)
[2020-12-16 05:33] VITALS: BP 100/59
[2020-12-16] MEDS: INSULIN LISPRO 100 UNITS/ML SQ PRN ×3 (06:36→21:25)
[2020-12-16 08:10] VITALS: BP 143/89
[2020-12-16] MEDS: AmLODIPine BESYLATE 5 MG TABLET PO SCH (09:27)
[2020-12-16] MEDS: RisperiDONE 4 MG TABLET PO SCH ×2 (09:27→16:22)
[2020-12-16 11:34] LABS: GLUCOMETER DEV NAME(LOC) 3E.I 2; GLUCOSE,POINT OF CARE 185 MG/DL (70-110)
[2020-12-16 16:11] VITALS: BP 129/75
[2020-12-16 16:47] LABS: GLUCOMETER DEV NAME(LOC) 3E.I 2; GLUCOSE,POINT OF CARE 122 MG/DL (70-110)
[2020-12-16 21:20] LABS: GLUCOMETER DEV NAME(LOC) 3E.I 2; GLUCOSE,POINT OF CARE 155 MG/DL (70-110)
[2020-12-17 05:34] LABS: GLUCOMETER DEV NAME(LOC) 3E.I 2; GLUCOSE,POINT OF CARE 173 MG/DL (70-110)
[2020-12-17 09:09] VITALS: BP 155/90
[2020-12-17] MEDS: AmLODIPine BESYLATE 5 MG TABLET PO SCH (10:30)
[2020-12-17] MEDS: RisperiDONE 4 MG TABLET PO SCH ×2 (10:30→16:43)
[2020-12-17 16:26] VITALS: BP 122/85
[2020-12-17] MEDS: INSULIN LISPRO 100 UNITS/ML SQ PRN (17:02)
[2020-12-17 17:03] LABS: GLUCOMETER DEV NAME(LOC) 3E.I 2; GLUCOSE,POINT OF CARE 164 MG/DL (70-110)
[2020-12-17 20:29] LABS: GLUCOMETER DEV NAME(LOC) 3E.I 2; GLUCOSE,POINT OF CARE 123 MG/DL (70-110)
[2020-12-18 04:39] VITALS: BP 124/81
[2020-12-18 05:37] LABS: GLUCOMETER DEV NAME(LOC) 3E.I 2; GLUCOSE,POINT OF CARE 135 MG/DL (70-110)
[2020-12-18] MEDS: AmLODIPine BESYLATE 5 MG TABLET PO SCH (08:34)
[2020-12-18] MEDS: RisperiDONE 4 MG TABLET PO SCH ×2 (08:34→16:14)
[2020-12-18 09:29] VITALS: BP 139/90
[2020-12-18] MEDS: INSULIN LISPRO 100 UNITS/ML SQ PRN (11:31)
[2020-12-18 11:41] LABS: GLUCOMETER DEV NAME(LOC) 3EX.; GLUCOSE,POINT OF CARE 101 MG/DL (70-110)
[2020-12-18 12:54] LABS: COVID AG,FIA SOURCE NASOPHARYNGEAL
[2020-12-18 16:00] VITALS: BP 155/83
[2020-12-18 16:26] VITALS: BP 155/83
[2020-12-18 16:55] LABS: GLUCOMETER DEV NAME(LOC) 3E.I 2; GLUCOSE,POINT OF CARE 121 MG/DL (70-110)
[2020-12-18 20:41] LABS: GLUCOMETER DEV NAME(LOC) 3E.I 2; GLUCOSE,POINT OF CARE 127 MG/DL (70-110)
[2020-12-18] MEDS: HALOPERIDOL 10 MG TABLET PO SCH (21:00)
[2020-12-19 06:22] LABS: GLUCOMETER DEV NAME(LOC) 3E.I 2; GLUCOSE,POINT OF CARE 108 MG/DL (70-110)
[2020-12-19 08:33] VITALS: BP 134/85
[2020-12-19] MEDS: AmLODIPine BESYLATE 5 MG TABLET PO SCH (09:34)
[2020-12-19] MEDS: RisperiDONE 4 MG TABLET PO SCH ×2 (09:34→17:01)
[2020-12-19 11:33] LABS: GLUCOMETER DEV NAME(LOC) 3E.I 2; GLUCOSE,POINT OF CARE 139 MG/DL (70-110)
[2020-12-19] MEDS: INSULIN LISPRO 100 UNITS/ML SQ PRN (11:36)
[2020-12-19 16:00] VITALS: BP 106/69
[2020-12-19 18:16] LABS: GLUCOMETER DEV NAME(LOC) 3E.I 2; GLUCOSE,POINT OF CARE 96 MG/DL (70-110)
[2020-12-19 21:39] LABS: GLUCOMETER DEV NAME(LOC) 3E.I 2; GLUCOSE,POINT OF CARE 120 MG/DL (70-110)
[2020-12-19] MEDS: HALOPERIDOL 10 MG TABLET PO SCH (21:41)
[2020-12-20 04:02] VITALS: BP 122/75
[2020-12-20 05:53] LABS: GLUCOMETER DEV NAME(LOC) 3E.I 2; GLUCOSE,POINT OF CARE 96 MG/DL (70-110)
[2020-12-20] MEDS: INSULIN LISPRO 100 UNITS/ML SQ PRN ×3 (06:37→17:57)
[2020-12-20 08:05] VITALS: BP 131/83
[2020-12-20] MEDS: RisperiDONE 4 MG TABLET PO SCH ×2 (08:38→16:39)
[2020-12-20] MEDS: AmLODIPine BESYLATE 5 MG TABLET PO SCH (08:38)
[2020-12-20 11:43] LABS: GLUCOMETER DEV NAME(LOC) 3E.I 2; GLUCOSE,POINT OF CARE 120 MG/DL (70-110)
[2020-12-20 16:59] VITALS: BP 129/83
[2020-12-20 17:03] LABS: GLUCOMETER DEV NAME(LOC) 3E.I 2; GLUCOSE,POINT OF CARE 156 MG/DL (70-110)
[2020-12-20] MEDS: HALOPERIDOL 10 MG TABLET PO SCH (20:13)
[2020-12-20 20:31] LABS: GLUCOMETER DEV NAME(LOC) 3E.I 2; GLUCOSE,POINT OF CARE 137 MG/DL (70-110)
[2020-12-21 05:34] LABS: GLUCOMETER DEV NAME(LOC) 3E.I 2; GLUCOSE,POINT OF CARE 93 MG/DL (70-110)
[2020-12-21 08:36] VITALS: BP 136/84
[2020-12-21] MEDS: AmLODIPine BESYLATE 5 MG TABLET PO SCH (08:45)
[2020-12-21] MEDS: RisperiDONE 4 MG TABLET PO SCH ×2 (08:45→16:52)
[2020-12-21 11:25] LABS: GLUCOMETER DEV NAME(LOC) 3E.I 2; GLUCOSE,POINT OF CARE 140 MG/DL (70-110)
[2020-12-21 16:08] VITALS: BP 128/81
[2020-12-21 17:24] LABS: GLUCOMETER DEV NAME(LOC) 3E.I 2; GLUCOSE,POINT OF CARE 90 MG/DL (70-110)
[2020-12-21] MEDS: HALOPERIDOL 10 MG TABLET PO SCH (20:48)
[2020-12-21] MEDS: INSULIN LISPRO 100 UNITS/ML SQ PRN (21:01)
[2020-12-21 21:07] LABS: GLUCOMETER DEV NAME(LOC) 3E.I 2; GLUCOSE,POINT OF CARE 165 MG/DL (70-110)
[2020-12-22 05:26] LABS: GLUCOMETER DEV NAME(LOC) 3E.I 2; GLUCOSE,POINT OF CARE 103 MG/DL (70-110)
[2020-12-22 08:43] VITALS: BP 120/80
[2020-12-22] MEDS: AmLODIPine BESYLATE 5 MG TABLET PO SCH (09:21)
[2020-12-22] MEDS: RisperiDONE 4 MG TABLET PO SCH ×2 (09:21→16:35)
[2020-12-22 11:29] LABS: GLUCOMETER DEV NAME(LOC) 3E.I 2; GLUCOSE,POINT OF CARE 98 MG/DL (70-110)
[2020-12-22 16:11] VITALS: BP 120/70
[2020-12-22 17:29] LABS: GLUCOMETER DEV NAME(LOC) 3E.I 2; GLUCOSE,POINT OF CARE 89 MG/DL (70-110)
[2020-12-22] MEDS: HALOPERIDOL 10 MG TABLET PO SCH (20:20)
[2020-12-22 20:36] LABS: GLUCOMETER DEV NAME(LOC) 3E.I 2; GLUCOSE,POINT OF CARE 177 MG/DL (70-110)
[2020-12-22] MEDS: INSULIN LISPRO 100 UNITS/ML SQ PRN (21:19)
[2020-12-23 04:06] VITALS: BP 123/72
[2020-12-23 05:52] LABS: GLUCOMETER DEV NAME(LOC) 3E.I 2; GLUCOSE,POINT OF CARE 98 MG/DL (70-110)
[2020-12-23 08:00] VITALS: BP 119/81
[2020-12-23] MEDS: AmLODIPine BESYLATE 5 MG TABLET PO SCH (10:22)
[2020-12-23] MEDS: RisperiDONE 4 MG TABLET PO SCH ×2 (10:22→16:18)
[2020-12-23 11:40] LABS: GLUCOMETER DEV NAME(LOC) 3EX.; GLUCOSE,POINT OF CARE 97 MG/DL (70-110)
[2020-12-23] MEDS: INSULIN LISPRO 100 UNITS/ML SQ PRN ×2 (13:15→21:13)
[2020-12-23 16:16] LABS: GLUCOMETER DEV NAME(LOC) 3E.I 2; GLUCOSE,POINT OF CARE 111 MG/DL (70-110)
[2020-12-23 16:35] VITALS: BP 117/75
[2020-12-23 20:34] LABS: GLUCOMETER DEV NAME(LOC) 3E.I 2; GLUCOSE,POINT OF CARE 180 MG/DL (70-110)
[2020-12-23] MEDS: HALOPERIDOL 10 MG TABLET PO SCH (20:54)
[2020-12-24 05:38] LABS: GLUCOMETER DEV NAME(LOC) 3E.I 2; GLUCOSE,POINT OF CARE 111 MG/DL (70-110)
[2020-12-24] MEDS: INSULIN LISPRO 100 UNITS/ML SQ PRN ×3 (06:35→17:39)
[2020-12-24] MEDS: AmLODIPine BESYLATE 5 MG TABLET PO SCH (08:56)
[2020-12-24] MEDS: RisperiDONE 4 MG TABLET PO SCH ×2 (08:56→16:17)
[2020-12-24 09:00] VITALS: BP 144/98
[2020-12-24 11:45] LABS: GLUCOMETER DEV NAME(LOC) 3EX.; GLUCOSE,POINT OF CARE 141 MG/DL (70-110)
[2020-12-24 16:00] VITALS: BP 133/81
[2020-12-24 16:24] LABS: GLUCOMETER DEV NAME(LOC) 3E.I 2; GLUCOSE,POINT OF CARE 168 MG/DL (70-110)
[2020-12-24 20:37] LABS: GLUCOMETER DEV NAME(LOC) 3E.I 2; GLUCOSE,POINT OF CARE 109 MG/DL (70-110)
[2020-12-24] MEDS: HALOPERIDOL 10 MG TABLET PO SCH (20:56)
[2020-12-25 05:54] LABS: GLUCOMETER DEV NAME(LOC) 3E.I 2; GLUCOSE,POINT OF CARE 117 MG/DL (70-110)
[2020-12-25] MEDS: RisperiDONE 4 MG TABLET PO SCH ×2 (08:18→16:02)
[2020-12-25 08:48] VITALS: BP 99/52
[2020-12-25] MEDS: AmLODIPine BESYLATE 5 MG TABLET PO SCH (09:42)
[2020-12-25 09:44] VITALS: BP 107/62
[2020-12-25 11:43] LABS: GLUCOMETER DEV NAME(LOC) 3EX.; GLUCOSE,POINT OF CARE 109 MG/DL (70-110)
[2020-12-25 14:55] LABS: COVID AG,FIA SOURCE NASOPHARYNGEAL
[2020-12-25 16:00] VITALS: BP 138/83
[2020-12-25 17:11] LABS: GLUCOMETER DEV NAME(LOC) 3E.I 2; GLUCOSE,POINT OF CARE 158 MG/DL (70-110)
[2020-12-25] MEDS: INSULIN LISPRO 100 UNITS/ML SQ PRN (17:13)
[2020-12-25] MEDS: HALOPERIDOL 10 MG TABLET PO SCH (20:04)
[2020-12-25 21:00] LABS: GLUCOMETER DEV NAME(LOC) 3E.I 2; GLUCOSE,POINT OF CARE 133 MG/DL (70-110)
[2020-12-26 05:14] VITALS: BP 108/68
[2020-12-26 05:37] LABS: GLUCOMETER DEV NAME(LOC) 3E.I 2; GLUCOSE,POINT OF CARE 117 MG/DL (70-110)
[2020-12-26] MEDS: RisperiDONE 4 MG TABLET PO SCH ×2 (09:07→16:56)
[2020-12-26] MEDS: AmLODIPine BESYLATE 5 MG TABLET PO SCH (09:07)
[2020-12-26 09:24] VITALS: BP 151/103
[2020-12-26] MEDS: INSULIN LISPRO 100 UNITS/ML SQ PRN ×4 (11:28→21:11)
[2020-12-26 11:32] LABS: GLUCOMETER DEV NAME(LOC) 3E.I 2; GLUCOSE,POINT OF CARE 168 MG/DL (70-110)
[2020-12-26 16:10] VITALS: BP 118/76
[2020-12-26 17:26] LABS: GLUCOMETER DEV NAME(LOC) 3E.I 2; GLUCOSE,POINT OF CARE 129 MG/DL (70-110)
[2020-12-26] MEDS: HALOPERIDOL 10 MG TABLET PO SCH (20:16)
[2020-12-26 21:15] LABS: GLUCOMETER DEV NAME(LOC) 3E.I 2; GLUCOSE,POINT OF CARE 189 MG/DL (70-110)
[2020-12-27 05:21] VITALS: BP 140/90
[2020-12-27 05:37] LABS: GLUCOMETER DEV NAME(LOC) 3E.I 2; GLUCOSE,POINT OF CARE 115 MG/DL (70-110)
[2020-12-27] MEDS: RisperiDONE 4 MG TABLET PO SCH ×2 (07:56→16:41)
[2020-12-27] MEDS: AmLODIPine BESYLATE 5 MG TABLET PO SCH (07:58)
[2020-12-27 11:31] LABS: GLUCOMETER DEV NAME(LOC) 3EX.; GLUCOSE,POINT OF CARE 135 MG/DL (70-110)
[2020-12-27 16:31] LABS: GLUCOMETER DEV NAME(LOC) 3E.I 2; GLUCOSE,POINT OF CARE 238 MG/DL (70-110)
[2020-12-27 16:50] VITALS: BP 133/87
[2020-12-27] MEDS: INSULIN LISPRO 100 UNITS/ML SQ PRN ×2 (18:41→21:40)
[2020-12-27] MEDS: HALOPERIDOL 10 MG TABLET PO SCH (20:22)
[2020-12-27 21:37] LABS: GLUCOMETER DEV NAME(LOC) 3E.I 2; GLUCOSE,POINT OF CARE 181 MG/DL (70-110)
[2020-12-28 06:28] LABS: GLUCOMETER DEV NAME(LOC) 3E.I 2; GLUCOSE,POINT OF CARE 105 MG/DL (70-110)
[2020-12-28 08:00] VITALS: BP 143/91
[2020-12-28] MEDS: RisperiDONE 4 MG TABLET PO SCH ×2 (08:09→16:07)
[2020-12-28] MEDS: AmLODIPine BESYLATE 5 MG TABLET PO SCH (08:09)
[2020-12-28] MEDS: INSULIN LISPRO 100 UNITS/ML SQ PRN ×3 (11:20→20:47)
[2020-12-28 11:26] LABS: GLUCOMETER DEV NAME(LOC) 3E.I 2; GLUCOSE,POINT OF CARE 291 MG/DL (70-110)
[2020-12-28 16:00] VITALS: BP 132/78
[2020-12-28 16:18] LABS: GLUCOMETER DEV NAME(LOC) 3E.I 2; GLUCOSE,POINT OF CARE 174 MG/DL (70-110)
[2020-12-28] MEDS: HALOPERIDOL 10 MG TABLET PO SCH (20:05)
[2020-12-28 20:23] LABS: GLUCOMETER DEV NAME(LOC) 3E.I 2; GLUCOSE,POINT OF CARE 166 MG/DL (70-110)
[2020-12-29 06:19] LABS: GLUCOMETER DEV NAME(LOC) 3E.I 2; GLUCOSE,POINT OF CARE 111 MG/DL (70-110)
[2020-12-29 08:00] VITALS: BP 127/79
[2020-12-29] MEDS: AmLODIPine BESYLATE 5 MG TABLET PO SCH (08:33)
[2020-12-29] MEDS: RisperiDONE 4 MG TABLET PO SCH ×2 (08:33→16:31)
[2020-12-29] MEDS ORDERED: LORazepam 2 MG TABLET PO PRN (10:45)
[2020-12-29] MEDS ORDERED: ZOLPIDEM TARTRATE 10 MG TABLET PO PRN (10:45)
[2020-12-29] MEDS: INSULIN LISPRO 100 UNITS/ML SQ PRN ×2 (10:59→17:40)
[2020-12-29 11:18] LABS: GLUCOMETER DEV NAME(LOC) 3E.I 2; GLUCOSE,POINT OF CARE 243 MG/DL (70-110)
[2020-12-29 16:00] VITALS: BP 132/92
[2020-12-29 16:26] LABS: GLUCOMETER DEV NAME(LOC) 3E.I 2; GLUCOSE,POINT OF CARE 190 MG/DL (70-110)
[2020-12-29] MEDS: HALOPERIDOL 10 MG TABLET PO SCH (20:05)
[2020-12-29 20:38] LABS: GLUCOMETER DEV NAME(LOC) 3E.I 2; GLUCOSE,POINT OF CARE 123 MG/DL (70-110)
[2020-12-30 05:39] LABS: GLUCOMETER DEV NAME(LOC) 3E.I 2; GLUCOSE,POINT OF CARE 114 MG/DL (70-110)
[2020-12-30] MEDS: RisperiDONE 4 MG TABLET PO SCH ×2 (08:14→16:52)
[2020-12-30] MEDS: AmLODIPine BESYLATE 5 MG TABLET PO SCH (08:14)
[2020-12-30 08:53] VITALS: BP 139/99
[2020-12-30] MEDS: INSULIN LISPRO 100 UNITS/ML SQ PRN ×2 (11:20→17:24)
[2020-12-30 11:35] LABS: GLUCOMETER DEV NAME(LOC) 3EX.; GLUCOSE,POINT OF CARE 199 MG/DL (70-110)
[2020-12-30 16:15] VITALS: BP 148/86
[2020-12-30 17:09] LABS: GLUCOMETER DEV NAME(LOC) 3E.I 2; GLUCOSE,POINT OF CARE 149 MG/DL (70-110)
[2020-12-30] MEDS: HALOPERIDOL 10 MG TABLET PO SCH (20:25)
[2020-12-30 21:18] LABS: GLUCOMETER DEV NAME(LOC) 3E.I 2; GLUCOSE,POINT OF CARE 146 MG/DL (70-110)
[2020-12-31 05:44] LABS: GLUCOMETER DEV NAME(LOC) 3E.I 2; GLUCOSE,POINT OF CARE 108 MG/DL (70-110)
[2020-12-31] MEDS: AmLODIPine BESYLATE 5 MG TABLET PO SCH (08:04)
[2020-12-31] MEDS: RisperiDONE 4 MG TABLET PO SCH ×2 (08:04→16:09)
[2020-12-31 08:50] VITALS: BP 122/89
[2020-12-31] MEDS: INSULIN LISPRO 100 UNITS/ML SQ PRN ×2 (11:27→20:59)
[2020-12-31 11:32] LABS: GLUCOMETER DEV NAME(LOC) 3EX.; GLUCOSE,POINT OF CARE 228 MG/DL (70-110)
[2020-12-31 16:00] VITALS: BP 123/89
[2020-12-31 16:36] LABS: GLUCOMETER DEV NAME(LOC) 3E.I 2; GLUCOSE,POINT OF CARE 119 MG/DL (70-110)
[2020-12-31] MEDS: HALOPERIDOL 10 MG TABLET PO SCH (20:18)
[2020-12-31 20:34] LABS: GLUCOMETER DEV NAME(LOC) 3E.I 2; GLUCOSE,POINT OF CARE 193 MG/DL (70-110)
[2021-01-01 00:40] VITALS: BP 139/75
[2021-01-01 05:38] LABS: GLUCOMETER DEV NAME(LOC) 3E.I 2; GLUCOSE,POINT OF CARE 107 MG/DL (70-110)
[2021-01-01] MEDS: INSULIN LISPRO 100 UNITS/ML SQ PRN ×4 (06:36→21:48)
[2021-01-01] MEDS: AmLODIPine BESYLATE 5 MG TABLET PO SCH (08:40)
[2021-01-01] MEDS: RisperiDONE 4 MG TABLET PO SCH ×2 (08:40→16:10)
[2021-01-01 09:30] VITALS: BP_SYST 134
[2021-01-01 11:43] LABS: GLUCOMETER DEV NAME(LOC) 3EX.; GLUCOSE,POINT OF CARE 200 MG/DL (70-110)
[2021-01-01 15:11] LABS: COVID AG,FIA SOURCE NASOPHARYNGEAL
[2021-01-01 16:07] VITALS: BP 126/65
[2021-01-01 16:33] LABS: GLUCOMETER DEV NAME(LOC) 3E.I 2; GLUCOSE,POINT OF CARE 145 MG/DL (70-110)
[2021-01-01] MEDS: HALOPERIDOL 10 MG TABLET PO SCH (20:51)
[2021-01-01 21:13] LABS: GLUCOMETER DEV NAME(LOC) 3E.I 2; GLUCOSE,POINT OF CARE 164 MG/DL (70-110)
[2021-01-02 06:48] LABS: GLUCOMETER DEV NAME(LOC) 3E.I 2; GLUCOSE,POINT OF CARE 108 MG/DL (70-110)
[2021-01-02] MEDS: RisperiDONE 4 MG TABLET PO SCH ×2 (08:23→17:12)
[2021-01-02] MEDS: AmLODIPine BESYLATE 5 MG TABLET PO SCH (08:23)
[2021-01-02 08:52] VITALS: BP 130/86
[2021-01-02 11:39] LABS: GLUCOMETER DEV NAME(LOC) 3EX.; GLUCOSE,POINT OF CARE 171 MG/DL (70-110)
[2021-01-02] MEDS: INSULIN LISPRO 100 UNITS/ML SQ PRN ×3 (11:55→21:14)
[2021-01-02 16:25] VITALS: BP 127/71
[2021-01-02 17:18] LABS: GLUCOMETER DEV NAME(LOC) 3E.I 2; GLUCOSE,POINT OF CARE 156 MG/DL (70-110)
[2021-01-02] MEDS: HALOPERIDOL 10 MG TABLET PO SCH (20:05)
[2021-01-02 21:36] LABS: GLUCOMETER DEV NAME(LOC) 3E.I 2; GLUCOSE,POINT OF CARE 144 MG/DL (70-110)
[2021-01-03 05:54] LABS: GLUCOMETER DEV NAME(LOC) 3E.I 2; GLUCOSE,POINT OF CARE 117 MG/DL (70-110)
[2021-01-03] MEDS: INSULIN LISPRO 100 UNITS/ML SQ PRN ×3 (06:35→21:28)
[2021-01-03] MEDS: RisperiDONE 4 MG TABLET PO SCH ×2 (09:23→16:23)
[2021-01-03] MEDS: AmLODIPine BESYLATE 5 MG TABLET PO SCH (09:24)
[2021-01-03 11:29] LABS: GLUCOMETER DEV NAME(LOC) 3E.I 2; GLUCOSE,POINT OF CARE 166 MG/DL (70-110)
[2021-01-03 14:05] VITALS: BP 130/78
[2021-01-03 16:30] VITALS: BP 146/94
[2021-01-03 18:07] LABS: GLUCOMETER DEV NAME(LOC) 3E.I 2; GLUCOSE,POINT OF CARE 192 MG/DL (70-110)
[2021-01-03] MEDS: HALOPERIDOL 10 MG TABLET PO SCH (20:29)
[2021-01-03 20:49] LABS: GLUCOMETER DEV NAME(LOC) 3E.I 2; GLUCOSE,POINT OF CARE 182 MG/DL (70-110)
[2021-01-04 06:23] LABS: GLUCOMETER DEV NAME(LOC) 3E.I 2; GLUCOSE,POINT OF CARE 100 MG/DL (70-110)
[2021-01-04 08:05] VITALS: BP 125/80
[2021-01-04] MEDS: RisperiDONE 4 MG TABLET PO SCH ×2 (09:25→16:29)
[2021-01-04] MEDS: AmLODIPine BESYLATE 5 MG TABLET PO SCH (09:26)
[2021-01-04] MEDS: INSULIN LISPRO 100 UNITS/ML SQ PRN ×3 (11:33→21:31)
[2021-01-04 11:41] LABS: GLUCOMETER DEV NAME(LOC) 3E.I 2; GLUCOSE,POINT OF CARE 277 MG/DL (70-110)
[2021-01-04 16:01] VITALS: BP 128/74
[2021-01-04 17:37] LABS: GLUCOMETER DEV NAME(LOC) 3E.I 2; GLUCOSE,POINT OF CARE 143 MG/DL (70-110)
[2021-01-04] MEDS: HALOPERIDOL 10 MG TABLET PO SCH (20:20)
[2021-01-04 22:01] LABS: GLUCOMETER DEV NAME(LOC) 3E.I 2; GLUCOSE,POINT OF CARE 160 MG/DL (70-110)
[2021-01-05 05:36] LABS: GLUCOMETER DEV NAME(LOC) 3E.I 2; GLUCOSE,POINT OF CARE 106 MG/DL (70-110)
[2021-01-05] MEDS: AmLODIPine BESYLATE 5 MG TABLET PO SCH (08:14)
[2021-01-05] MEDS: RisperiDONE 4 MG TABLET PO SCH ×2 (08:14→16:03)
[2021-01-05 08:41] VITALS: BP 131/82
[2021-01-05] MEDS: INSULIN LISPRO 100 UNITS/ML SQ PRN (11:24)
[2021-01-05 11:28] LABS: GLUCOMETER DEV NAME(LOC) 3EX.; GLUCOSE,POINT OF CARE 170 MG/DL (70-110)
[2021-01-05 16:18] VITALS: BP 116/90
[2021-01-05 17:03] LABS: GLUCOMETER DEV NAME(LOC) 3EX.; GLUCOSE,POINT OF CARE 134 MG/DL (70-110)
[2021-01-05] MEDS: HALOPERIDOL 10 MG TABLET PO SCH (20:16)
[2021-01-06 05:37] LABS: GLUCOMETER DEV NAME(LOC) 3E.I 2; GLUCOSE,POINT OF CARE 115 MG/DL (70-110)
[2021-01-06 08:00] VITALS: BP 111/73
[2021-01-06 08:37] VITALS: BP 111/73
[2021-01-06] MEDS: RisperiDONE 4 MG TABLET PO SCH ×2 (09:06→16:35)
[2021-01-06] MEDS: AmLODIPine BESYLATE 5 MG TABLET PO SCH (09:06)
[2021-01-06] MEDS: INSULIN LISPRO 100 UNITS/ML SQ PRN (11:26)
[2021-01-06 11:27] LABS: GLUCOMETER DEV NAME(LOC) 3EX.; GLUCOSE,POINT OF CARE 166 MG/DL (70-110)
[2021-01-06 16:13] VITALS: BP 120/80
[2021-01-06 17:28] LABS: GLUCOMETER DEV NAME(LOC) 3E.I 2; GLUCOSE,POINT OF CARE 122 MG/DL (70-110)
[2021-01-06 18:25] LABS: GLUCOMETER DEV NAME(LOC) 3E.I 2; GLUCOSE,POINT OF CARE 346 MG/DL (70-110)
[2021-01-06] MEDS: HALOPERIDOL 10 MG TABLET PO SCH (21:00)
[2021-01-07 05:33] LABS: GLUCOMETER DEV NAME(LOC) 3E.I 2; GLUCOSE,POINT OF CARE 131 MG/DL (70-110)
[2021-01-07] MEDS: RisperiDONE 4 MG TABLET PO SCH ×2 (08:20→16:53)
[2021-01-07] MEDS: AmLODIPine BESYLATE 5 MG TABLET PO SCH (08:20)
[2021-01-07 08:34] VITALS: BP 112/78
[2021-01-07] MEDS: INSULIN LISPRO 100 UNITS/ML SQ PRN ×2 (11:10→17:11)
[2021-01-07 11:20] LABS: GLUCOMETER DEV NAME(LOC) 3EX.; GLUCOSE,POINT OF CARE 240 MG/DL (70-110)
[2021-01-07 16:00] VITALS: BP 110/72
[2021-01-07 17:39] LABS: GLUCOMETER DEV NAME(LOC) 3EX.; GLUCOSE,POINT OF CARE 143 MG/DL (70-110)
[2021-01-07] MEDS: HALOPERIDOL 10 MG TABLET PO SCH (20:37)
[2021-01-08 05:12] VITALS: BP 118/75
[2021-01-08 05:37] LABS: GLUCOMETER DEV NAME(LOC) 3E.I 2; GLUCOSE,POINT OF CARE 98 MG/DL (70-110)
[2021-01-08] MEDS: RisperiDONE 4 MG TABLET PO SCH ×2 (08:20→17:33)
[2021-01-08] MEDS: AmLODIPine BESYLATE 5 MG TABLET PO SCH (08:20)
[2021-01-08 08:28] VITALS: BP 143/90
[2021-01-08] MEDS: INSULIN LISPRO 100 UNITS/ML SQ PRN ×3 (11:23→21:33)
[2021-01-08 11:40] LABS: GLUCOMETER DEV NAME(LOC) 3EX.; GLUCOSE,POINT OF CARE 182 MG/DL (70-110)
[2021-01-08 12:41] LABS: COVID AG,FIA SOURCE NASOPHARYNGEAL
[2021-01-08 16:00] VITALS: BP 124/81
[2021-01-08 17:42] LABS: GLUCOMETER DEV NAME(LOC) 3EX.; GLUCOSE,POINT OF CARE 178 MG/DL (70-110)
[2021-01-08 21:10] LABS: GLUCOMETER DEV NAME(LOC) 3EX.; GLUCOSE,POINT OF CARE 190 MG/DL (70-110)
[2021-01-08] MEDS: HALOPERIDOL 10 MG TABLET PO SCH (21:33)
[2021-01-09 05:50] LABS: GLUCOMETER DEV NAME(LOC) 3E.I 2; GLUCOSE,POINT OF CARE 119 MG/DL (70-110)
[2021-01-09 08:00] VITALS: BP 125/92
[2021-01-09] MEDS: RisperiDONE 4 MG TABLET PO SCH ×2 (08:27→16:46)
[2021-01-09] MEDS: AmLODIPine BESYLATE 5 MG TABLET PO SCH (08:28)
[2021-01-09 11:23] LABS: GLUCOMETER DEV NAME(LOC) 3EX.; GLUCOSE,POINT OF CARE 253 MG/DL (70-110)
[2021-01-09] MEDS: INSULIN LISPRO 100 UNITS/ML SQ PRN ×3 (11:30→21:05)
[2021-01-09 16:00] VITALS: BP 124/84
[2021-01-09 16:52] LABS: GLUCOMETER DEV NAME(LOC) 3EX.; GLUCOSE,POINT OF CARE 179 MG/DL (70-110)
[2021-01-09] MEDS: HALOPERIDOL 10 MG TABLET PO SCH (20:23)
[2021-01-09 20:51] LABS: GLUCOMETER DEV NAME(LOC) 3EX.; GLUCOSE,POINT OF CARE 146 MG/DL (70-110)
[2021-01-10 05:42] LABS: GLUCOMETER DEV NAME(LOC) 3E.I 2; GLUCOSE,POINT OF CARE 128 MG/DL (70-110)
[2021-01-10 08:00] VITALS: BP 136/84
[2021-01-10] MEDS: RisperiDONE 4 MG TABLET PO SCH ×2 (09:05→16:21)
[2021-01-10] MEDS: AmLODIPine BESYLATE 5 MG TABLET PO SCH (09:05)
[2021-01-10] MEDS: INSULIN LISPRO 100 UNITS/ML SQ PRN ×2 (11:31→17:13)
[2021-01-10 11:57] LABS: GLUCOMETER DEV NAME(LOC) 3EX.; GLUCOSE,POINT OF CARE 157 MG/DL (70-110)
[2021-01-10 16:15] VITALS: BP 110/71
[2021-01-10 18:26] LABS: GLUCOMETER DEV NAME(LOC) 3E.I 2; GLUCOSE,POINT OF CARE 220 MG/DL (70-110)
[2021-01-10] MEDS: HALOPERIDOL 10 MG TABLET PO SCH (20:51)
[2021-01-10 21:12] LABS: GLUCOMETER DEV NAME(LOC) 3E.I 2; GLUCOSE,POINT OF CARE 133 MG/DL (70-110)
[2021-01-11 05:36] LABS: GLUCOMETER DEV NAME(LOC) 3E.I 2; GLUCOSE,POINT OF CARE 125 MG/DL (70-110)
[2021-01-11 08:00] VITALS: BP 125/73
[2021-01-11] MEDS: AmLODIPine BESYLATE 5 MG TABLET PO SCH (08:39)
[2021-01-11] MEDS: RisperiDONE 4 MG TABLET PO SCH ×2 (08:39→17:09)
[2021-01-11] MEDS: INSULIN LISPRO 100 UNITS/ML SQ PRN ×3 (11:57→21:18)
[2021-01-11 11:59] LABS: GLUCOMETER DEV NAME(LOC) 3EX.; GLUCOSE,POINT OF CARE 192 MG/DL (70-110)
[2021-01-11 16:02] VITALS: BP 134/82
[2021-01-11 17:04] LABS: GLUCOMETER DEV NAME(LOC) 3EX.; GLUCOSE,POINT OF CARE 181 MG/DL (70-110)
[2021-01-11 21:09] LABS: GLUCOMETER DEV NAME(LOC) 3EX.; GLUCOSE,POINT OF CARE 184 MG/DL (70-110)
[2021-01-11] MEDS: HALOPERIDOL 10 MG TABLET PO SCH (21:38)
[2021-01-12 05:45] LABS: GLUCOMETER DEV NAME(LOC) 3E.I 2; GLUCOSE,POINT OF CARE 118 MG/DL (70-110)
[2021-01-12 08:15] VITALS: BP 115/77
[2021-01-12] MEDS: RisperiDONE 4 MG TABLET PO SCH ×2 (08:33→16:48)
[2021-01-12] MEDS: AmLODIPine BESYLATE 5 MG TABLET PO SCH (08:34)
[2021-01-12] MEDS: INSULIN LISPRO 100 UNITS/ML SQ PRN (11:25)
[2021-01-12 11:29] LABS: GLUCOMETER DEV NAME(LOC) 3EX.; GLUCOSE,POINT OF CARE 283 MG/DL (70-110)
[2021-01-12 16:05] VITALS: BP 111/81
[2021-01-12 16:54] LABS: GLUCOMETER DEV NAME(LOC) 3EX.; GLUCOSE,POINT OF CARE 118 MG/DL (70-110)
[2021-01-12] MEDS: HALOPERIDOL 10 MG TABLET PO SCH (20:44)
[2021-01-12 21:00] LABS: GLUCOMETER DEV NAME(LOC) 3EX.; GLUCOSE,POINT OF CARE 133 MG/DL (70-110)
[2021-01-13 05:20] VITALS: BP 123/82
[2021-01-13 05:39] LABS: GLUCOMETER DEV NAME(LOC) 3E.I 2; GLUCOSE,POINT OF CARE 114 MG/DL (70-110)
[2021-01-13 08:04] VITALS: BP 120/84
[2021-01-13] MEDS: RisperiDONE 4 MG TABLET PO SCH ×2 (08:14→16:02)
[2021-01-13] MEDS: AmLODIPine BESYLATE 5 MG TABLET PO SCH (08:14)
[2021-01-13] MEDS: INSULIN LISPRO 100 UNITS/ML SQ PRN ×3 (11:24→21:41)
[2021-01-13 11:26] LABS: GLUCOMETER DEV NAME(LOC) 3E.I 2; GLUCOSE,POINT OF CARE 179 MG/DL (70-110)
[2021-01-13 16:24] VITALS: BP 129/97
[2021-01-13 17:10] LABS: GLUCOMETER DEV NAME(LOC) 3E.I 2; GLUCOSE,POINT OF CARE 150 MG/DL (70-110)
[2021-01-13] MEDS: HALOPERIDOL 10 MG TABLET PO SCH (20:15)
[2021-01-13 20:57] LABS: GLUCOMETER DEV NAME(LOC) 3E.I 2; GLUCOSE,POINT OF CARE 145 MG/DL (70-110)
[2021-01-14 05:32] LABS: GLUCOMETER DEV NAME(LOC) 3E.I 2; GLUCOSE,POINT OF CARE 113 MG/DL (70-110)
[2021-01-14 08:00] VITALS: BP 114/73
[2021-01-14] MEDS: RisperiDONE 4 MG TABLET PO SCH ×2 (08:12→16:42)
[2021-01-14] MEDS: AmLODIPine BESYLATE 5 MG TABLET PO SCH (08:13)
[2021-01-14] MEDS: INSULIN LISPRO 100 UNITS/ML SQ PRN ×2 (11:43→20:45)
[2021-01-14 12:04] LABS: GLUCOMETER DEV NAME(LOC) 3EX.; GLUCOSE,POINT OF CARE 155 MG/DL (70-110)
[2021-01-14 16:00] VITALS: BP 147/92
[2021-01-14 17:34] LABS: GLUCOMETER DEV NAME(LOC) 3E.I 2; GLUCOSE,POINT OF CARE 116 MG/DL (70-110)
[2021-01-14 20:38] LABS: GLUCOMETER DEV NAME(LOC) 3E.I 2; GLUCOSE,POINT OF CARE 277 MG/DL (70-110)
[2021-01-14] MEDS: HALOPERIDOL 10 MG TABLET PO SCH (20:55)
[2021-01-15 04:09] VITALS: BP 121/78
[2021-01-15 06:02] LABS: GLUCOMETER DEV NAME(LOC) 3E.I 2; GLUCOSE,POINT OF CARE 123 MG/DL (70-110)
[2021-01-15 08:10] VITALS: BP 126/78
[2021-01-15] MEDS: RisperiDONE 4 MG TABLET PO SCH ×2 (08:15→16:12)
[2021-01-15] MEDS: AmLODIPine BESYLATE 5 MG TABLET PO SCH (08:15)
[2021-01-15] MEDS: INSULIN LISPRO 100 UNITS/ML SQ PRN ×3 (11:22→21:32)
[2021-01-15 11:28] LABS: GLUCOMETER DEV NAME(LOC) 3EX.; GLUCOSE,POINT OF CARE 128 MG/DL (70-110)
[2021-01-15 14:46] LABS: COVID AG,FIA SOURCE NASOPHARYNGEAL
[2021-01-15 17:08] VITALS: BP 125/84
[2021-01-15] MEDS: HALOPERIDOL 10 MG TABLET PO SCH (20:04)
[2021-01-15 20:34] LABS: GLUCOMETER DEV NAME(LOC) 3E.I 2; GLUCOSE,POINT OF CARE 147 MG/DL (70-110)
[2021-01-16 05:37] LABS: GLUCOMETER DEV NAME(LOC) 3E.I 2; GLUCOSE,POINT OF CARE 103 MG/DL (70-110)
[2021-01-16] MEDS: RisperiDONE 4 MG TABLET PO SCH ×2 (08:07→16:10)
[2021-01-16] MEDS: AmLODIPine BESYLATE 5 MG TABLET PO SCH (08:07)
[2021-01-16 09:11] VITALS: BP 147/89
[2021-01-16] MEDS: INSULIN LISPRO 100 UNITS/ML SQ PRN ×2 (11:36→17:42)
[2021-01-16 11:37] LABS: GLUCOMETER DEV NAME(LOC) 3EX.; GLUCOSE,POINT OF CARE 148 MG/DL (70-110)
[2021-01-16 16:03] VITALS: BP 123/82
[2021-01-16 17:09] LABS: GLUCOMETER DEV NAME(LOC) 3E.I 2; GLUCOSE,POINT OF CARE 149 MG/DL (70-110)
[2021-01-16] MEDS: HALOPERIDOL 10 MG TABLET PO SCH (20:35)
[2021-01-16 21:01] LABS: GLUCOMETER DEV NAME(LOC) 3E.I 2; GLUCOSE,POINT OF CARE 99 MG/DL (70-110)
[2021-01-17 05:25] LABS: GLUCOMETER DEV NAME(LOC) 3E.I 2; GLUCOSE,POINT OF CARE 118 MG/DL (70-110)
[2021-01-17 08:00] VITALS: BP 112/74
[2021-01-17] MEDS: AmLODIPine BESYLATE 5 MG TABLET PO SCH (08:58)
[2021-01-17] MEDS: RisperiDONE 4 MG TABLET PO SCH ×2 (08:58→16:40)
[2021-01-17] MEDS: INSULIN LISPRO 100 UNITS/ML SQ PRN ×2 (11:52→17:00)
[2021-01-17 11:56] LABS: GLUCOMETER DEV NAME(LOC) 3EX.; GLUCOSE,POINT OF CARE 155 MG/DL (70-110)
[2021-01-17 16:31] VITALS: BP 128/79
[2021-01-17 17:04] LABS: GLUCOMETER DEV NAME(LOC) 3EX.; GLUCOSE,POINT OF CARE 183 MG/DL (70-110)
[2021-01-17] MEDS: HALOPERIDOL 10 MG TABLET PO SCH (21:03)
[2021-01-17 21:12] LABS: GLUCOMETER DEV NAME(LOC) 3E.I 2; GLUCOSE,POINT OF CARE 136 MG/DL (70-110)
[2021-01-18 05:30] LABS: GLUCOMETER DEV NAME(LOC) 3E.I 2; GLUCOSE,POINT OF CARE 100 MG/DL (70-110)
[2021-01-18] MEDS: RisperiDONE 4 MG TABLET PO SCH ×2 (08:09→16:22)
[2021-01-18] MEDS: AmLODIPine BESYLATE 5 MG TABLET PO SCH (08:10)
[2021-01-18 08:31] VITALS: BP 140/93
[2021-01-18] MEDS: INSULIN LISPRO 100 UNITS/ML SQ PRN ×2 (11:12→17:27)
[2021-01-18 11:19] LABS: GLUCOMETER DEV NAME(LOC) 3EX.; GLUCOSE,POINT OF CARE 205 MG/DL (70-110)
[2021-01-18 16:08] VITALS: BP 104/65
[2021-01-18 17:08] LABS: GLUCOMETER DEV NAME(LOC) 3E.I 2; GLUCOSE,POINT OF CARE 155 MG/DL (70-110)
[2021-01-18] MEDS: HALOPERIDOL 10 MG TABLET PO SCH (20:34)
[2021-01-18 21:33] LABS: GLUCOMETER DEV NAME(LOC) 3E.I 2; GLUCOSE,POINT OF CARE 115 MG/DL (70-110)
[2021-01-19 00:22] VITALS: BP 123/80
[2021-01-19 05:31] LABS: GLUCOMETER DEV NAME(LOC) 3E.I 2; GLUCOSE,POINT OF CARE 110 MG/DL (70-110)
[2021-01-19] MEDS: AmLODIPine BESYLATE 5 MG TABLET PO SCH (07:59)
[2021-01-19] MEDS: RisperiDONE 4 MG TABLET PO SCH ×2 (07:59→16:39)
[2021-01-19 08:42] VITALS: BP 132/84
[2021-01-19 12:06] LABS: GLUCOMETER DEV NAME(LOC) 3E.I 2; GLUCOSE,POINT OF CARE 130 MG/DL (70-110)
[2021-01-19 16:08] VITALS: BP 130/81
[2021-01-19 17:21] LABS: GLUCOMETER DEV NAME(LOC) 3E.I 2; GLUCOSE,POINT OF CARE 106 MG/DL (70-110)
[2021-01-19] MEDS: HALOPERIDOL 10 MG TABLET PO SCH (20:29)
[2021-01-19 21:02] LABS: GLUCOMETER DEV NAME(LOC) 3E.I 2; GLUCOSE,POINT OF CARE 151 MG/DL (70-110)
[2021-01-19] MEDS: INSULIN LISPRO 100 UNITS/ML SQ PRN (21:14)
[2021-01-20 05:34] LABS: GLUCOMETER DEV NAME(LOC) 3E.I 2; GLUCOSE,POINT OF CARE 121 MG/DL (70-110)
[2021-01-20] MEDS: AmLODIPine BESYLATE 5 MG TABLET PO SCH (08:09)
[2021-01-20] MEDS: RisperiDONE 4 MG TABLET PO SCH ×2 (08:09→16:17)
[2021-01-20 08:14] VITALS: BP 119/79
[2021-01-20] MEDS: INSULIN LISPRO 100 UNITS/ML SQ PRN ×2 (11:16→17:08)
[2021-01-20 11:21] LABS: GLUCOMETER DEV NAME(LOC) 3EX.; GLUCOSE,POINT OF CARE 188 MG/DL (70-110)
[2021-01-20] MEDS: HALOPERIDOL 5 MG TABLET PO PRN (16:17)
[2021-01-20 16:34] VITALS: BP 139/75
[2021-01-20 16:59] LABS: GLUCOMETER DEV NAME(LOC) 3E.I 2; GLUCOSE,POINT OF CARE 147 MG/DL (70-110)
[2021-01-20 21:38] LABS: GLUCOMETER DEV NAME(LOC) 3E.I 2; GLUCOSE,POINT OF CARE 120 MG/DL (70-110)
[2021-01-21 05:30] LABS: GLUCOMETER DEV NAME(LOC) 3E.I 2; GLUCOSE,POINT OF CARE 103 MG/DL (70-110)
[2021-01-21] MEDS: AmLODIPine BESYLATE 5 MG TABLET PO SCH (08:04)
[2021-01-21] MEDS: RisperiDONE 4 MG TABLET PO SCH ×2 (08:04→16:33)
[2021-01-21 08:15] VITALS: BP 112/78
[2021-01-21] MEDS: INSULIN LISPRO 100 UNITS/ML SQ PRN ×2 (11:09→22:13)
[2021-01-21 12:39] LABS: GLUCOMETER DEV NAME(LOC) 3EX.; GLUCOSE,POINT OF CARE 176 MG/DL (70-110)
[2021-01-21 16:00] VITALS: BP 111/80
[2021-01-21 16:41] LABS: GLUCOMETER DEV NAME(LOC) 3E.I 2; GLUCOSE,POINT OF CARE 127 MG/DL (70-110)
[2021-01-21 23:55] LABS: GLUCOMETER DEV NAME(LOC) 3E.I 2; GLUCOSE,POINT OF CARE 175 MG/DL (70-110)
[2021-01-22 04:20] VITALS: BP 123/62
[2021-01-22 05:45] LABS: GLUCOMETER DEV NAME(LOC) 3EX.; GLUCOSE,POINT OF CARE 109 MG/DL (70-110)
[2021-01-22 08:00] VITALS: BP_SYST 113; BP_SYST 120; BP_DIAS 65
[2021-01-22] MEDS: AmLODIPine BESYLATE 5 MG TABLET PO SCH (08:16)
[2021-01-22] MEDS: RisperiDONE 4 MG TABLET PO SCH ×2 (08:16→16:26)
[2021-01-22] MEDS: INSULIN LISPRO 100 UNITS/ML SQ PRN ×3 (11:49→21:36)
[2021-01-22 12:12] LABS: GLUCOMETER DEV NAME(LOC) 3EX.; GLUCOSE,POINT OF CARE 145 MG/DL (70-110)
[2021-01-22 15:36] LABS: COVID AG,FIA SOURCE NASOPHARYNGEAL
[2021-01-22] MEDS: HALOPERIDOL 5 MG TABLET PO PRN (16:26)
[2021-01-22 16:36] VITALS: BP 142/86
[2021-01-22 16:40] LABS: GLUCOMETER DEV NAME(LOC) 3E.I 2; GLUCOSE,POINT OF CARE 163 MG/DL (70-110)
[2021-01-22 20:35] LABS: GLUCOMETER DEV NAME(LOC) 3E.I 2; GLUCOSE,POINT OF CARE 156 MG/DL (70-110)
[2021-01-23 05:26] LABS: GLUCOMETER DEV NAME(LOC) 3E.I 2; GLUCOSE,POINT OF CARE 109 MG/DL (70-110)
[2021-01-23 08:08] VITALS: BP 135/77
[2021-01-23] MEDS: AmLODIPine BESYLATE 5 MG TABLET PO SCH (08:49)
[2021-01-23] MEDS: RisperiDONE 4 MG TABLET PO SCH ×2 (08:49→16:04)
[2021-01-23 11:27] LABS: GLUCOMETER DEV NAME(LOC) 3E.I 2; GLUCOSE,POINT OF CARE 131 MG/DL (70-110)
[2021-01-23 16:47] VITALS: BP 105/70
[2021-01-23 17:24] LABS: GLUCOMETER DEV NAME(LOC) 3EX.; GLUCOSE,POINT OF CARE 196 MG/DL (70-110)
[2021-01-23] MEDS: INSULIN LISPRO 100 UNITS/ML SQ PRN (17:27)
[2021-01-23 21:07] LABS: GLUCOMETER DEV NAME(LOC) 3EX.; GLUCOSE,POINT OF CARE 108 MG/DL (70-110)
[2021-01-24 00:48] VITALS: BP 110/78
[2021-01-24 05:55] LABS: GLUCOMETER DEV NAME(LOC) 3E.I 2; GLUCOSE,POINT OF CARE 102 MG/DL (70-110)
[2021-01-24] MEDS: RisperiDONE 4 MG TABLET PO SCH (08:56)
[2021-01-24] MEDS: AmLODIPine BESYLATE 5 MG TABLET PO SCH (09:04)
[2021-01-24 09:24] VITALS: BP 121/83
[2021-01-24] MEDS ORDERED: RISP4TAB73 PO (10:57)
[2021-01-24] MEDS ORDERED: AMLO-257 PO (10:57)
[2021-01-24] MEDS: INSULIN LISPRO 100 UNITS/ML SQ PRN (12:00)
[2021-01-24 12:01] LABS: GLUCOMETER DEV NAME(LOC) 3EX.; GLUCOSE,POINT OF CARE 165 MG/DL (70-110)
== END 2021-01-24 13:20 | DRG 885 ==
LOC: EMS 22:41 → 3EX 11-07 03:00
PROVIDERS: ADMIT Psychiatry & Neurology Psychiatry; ATTEND Psychiatry & Neurology Psychiatry
DX: F20.0 Paranoid schizophrenia (principal); N19 Unspecified kidney failure; N39.0 Urinary tract infection, site not specified; I10 Essential (primary) hypertension; E11.9 Type 2 diabetes mellitus without complications; N50.811 Right testicular pain; Z20.822 Contact with and (suspected) exposure to COVID-19; Z59.0 Homelessness; F14.90 Cocaine use, unspecified, uncomplicated; F41.9 Anxiety disorder, unspecified; K59.00 Constipation, unspecified; G47.00 Insomnia, unspecified
CPT/HCPCS: 80048; 80053; 80061; 81001; 82962; 83036; 83690; 83735; 84100; 84443; 85007; 85025; 85027; 87077; 87081; 87086; 87186; 87426; 99285; G0378; G0480; J7030